=== PATIENT | male | born 1985 | race African-American/Black ===

== ENCOUNTER 2017-08-07 10:19 | Emergency (ER) | payer OTHER ==
[2017-08-07] MEDS ORDERED: Fluorescein Opthalmic Strip ONE (10:29)
[2017-08-07] MEDS ORDERED: Gentamicin Ophth Soln 0.3% 5 ml Bottle ONE (10:36)
== END 2017-08-07 10:54 | disposition home or self-care (01) ==
LOC: BURERS 10:19
DX: S05.02XA Injury of conjunctiva and corneal abrasion without foreign body, left eye, initial encounter (principal); H10.89 Other conjunctivitis; F17.210 Nicotine dependence, cigarettes, uncomplicated; X58.XXXA Exposure to other specified factors, initial encounter
CPT/HCPCS: 99283